=== PATIENT | female | born 1995 | race Caucasian/White ===

== ENCOUNTER 2016-09-21 10:24 | Emergency (ER) | payer OTHER | END 2016-09-21 13:38 | disposition home or self-care (01) | LOC: ER 10:24 | DX: R10.11 Right upper quadrant pain (principal); R11.2 Nausea with vomiting, unspecified; G43.909 Migraine, unspecified, not intractable, without status migrainosus | CPT/HCPCS: 36415; 96361; 96374; 96375 ==

== ENCOUNTER 2016-09-21 21:28 | Emergency (ER) | payer OTHER | END 2016-09-22 00:48 | disposition home or self-care (01) | LOC: ER 21:28 | DX: R10.0 Acute abdomen (principal); F41.0 Panic disorder [episodic paroxysmal anxiety]; G43.909 Migraine, unspecified, not intractable, without status migrainosus; E05.90 Thyrotoxicosis, unspecified without thyrotoxic crisis or storm; Z79.899 Other long term (current) drug therapy | CPT/HCPCS: 96374; 96375; J2550; Q9963; Q9967 ==

== ENCOUNTER → 2016-10-12 | Day surgery (SDC) | payer OTHER | END | disposition home or self-care (01) | LOC: SDCH 09:57 → LAB 09:57 → SDCH 11:15 | DX: R10.11 Right upper quadrant pain (principal); R11.10 Vomiting, unspecified; K21.9 Gastro-esophageal reflux disease without esophagitis; G43.909 Migraine, unspecified, not intractable, without status migrainosus; F41.9 Anxiety disorder, unspecified; Z79.899 Other long term (current) drug therapy; Z98.890 Other specified postprocedural states | CPT/HCPCS: J2704 ==

== ENCOUNTER → 2016-12-07 | Day surgery (SDC) | payer OTHER | END | disposition home or self-care (01) | LOC: SDC 12:00 | DX: K81.1 Chronic cholecystitis (principal); Z79.899 Other long term (current) drug therapy; E07.9 Disorder of thyroid, unspecified; Z86.69 Personal history of other diseases of the nervous system and sense organs | CPT/HCPCS: C1894; J1885; J2704; J2765; Q9967 ==